=== PATIENT | female | born 1985 | race Caucasian/White ===

== ENCOUNTER 2019-02-28 12:13 | Inpatient (IN) | payer OTHER ==
[~2019-02-28] VITALS: Ht 167.6 cm; Wt 98.2 kg
[~2019-02-28 12:13] MED LIST: HYDR-3240 PO; IBUP-1222 PO
[2019-03-07 05:05] VITALS: BP 120/68
[2019-03-07] MEDS ORDERED: OXYTOCIN 30U/ 0.9% NaCL 500ML 500 ML IV ONE (05:05)
[2019-03-07] MEDS ORDERED: OXYTOCIN 30U/ 0.9% NaCL 500ML 500 ML IV PRN (05:05)
[2019-03-07] MEDS ORDERED: D5%-LACTATED RINGERS 1,000 ML IV SCH (05:05)
[2019-03-07] MEDS ORDERED: MISOPROSTOL 200 MCG TABLET ONE (05:10)
[2019-03-07] MEDS ORDERED: NEWBORN KIT ONE (05:10)
[2019-03-07] MEDS ORDERED: LIDOCAINE 1%, 20ML ONE (05:10)
[2019-03-07] MEDS ORDERED: OXYTOCIN 30U/ 0.9% NaCL 500ML 500 ML ONE ×2 (05:10→14:03)
[2019-03-07] MEDS ORDERED: CALCIUM CARBONATE 500 MG TAB.CHEW PO PRN (05:30)
[2019-03-07] MEDS ORDERED: FENTANYL PF 100 MCG/2ML IVPush PRN (05:30)
[2019-03-07] MEDS ORDERED: TERBUTALINE 1 MG/ML, 1ML IVPush PRN (05:30)
[2019-03-07] MEDS ORDERED: ONDANSETRON 2MG/ML, 2ML IVPush PRN (05:30)
[2019-03-07] MEDS ORDERED: FENTANYL PF 100 MCG/2ML IV PRN (05:30)
[2019-03-07] MEDS ORDERED: METOCLOPRAMIDE 5 MG/ML, 2ML IVPush PRN (05:30)
[2019-03-07] MEDS ORDERED: SODIUM CITRATE/CITRIC ACID 15 ML UDC PO PRN (05:30)
[2019-03-07] MEDS: LACTATED RINGERS 1,000 ML IV SCH ×2 (05:33→13:51)
[2019-03-07 05:45] LABS: BASOPHILS # (AUTO) 0.02 x10^3/uL (0-0.1); BASOPHILS % (AUTO) 0 % (0-1); EOSINOPHILS # (AUTO) 0.14 x10^3/uL (0-0.4); EOSINOPHILS % (AUTO) 1 % (1-7); LYMPHOCYTES # (AUTO) 1.84 x10^3/uL (1-3.4); LYMPHOCYTES % (AUTO) 19 % (22-44); MD NO; MEAN CORPUSCULAR HEMOGLOBIN 29.8 pg (27.0-34.8); MEAN CORPUSCULAR VOLUME 90.3 fL (80-100); MEAN PLATELET VOLUME 8.8 fL (7.4-10.4); MONOCYTES # (AUTO) 0.73 x10^3/uL (0.2-0.8); MONOCYTES % (AUTO) 8 % (2-9); NEUTROPHILS # (AUTO) 7.08 x10^3/uL (1.8-6.8); NEUTROPHILS % (AUTO) 72 % (42-75); PLATELET COUNT 222 x10^3/uL (130-400); RED BLOOD COUNT 3.74 x10^6/uL (3.82-5.3); RED CELL DISTRIBUTION WIDTH 13.9 % (9.6-15.2)
[2019-03-07] MEDS ORDERED: FENTANYL/BUPIV./NS/PF 250 ML EPIDCONT ONE ×2 (08:49→09:05)
[2019-03-07] MEDS ORDERED: BUPIVACAINE 0.25% ONE ×2 (08:56→09:05)
[2019-03-07] MEDS ORDERED: FENTANYL/BUPIV./NS/PF 250 ML EPIDCONT SCH (09:08)
[2019-03-07] MEDS ORDERED: LACTATED RINGERS 1,000 ML IV SCH (09:08)
[2019-03-07] MEDS ORDERED: LACTATED RINGERS 1,000 ML IVBOLUS PRN (09:30)
[2019-03-07] MEDS ORDERED: EPHEDRINE 50 MG/ML, 1ML IVPush PRN (09:30)
[2019-03-07] MEDS: OXYTOCIN 30U/ 0.9% NaCL 500ML 500 ML IV SCH ×2 (13:24→23:24)
[2019-03-07] MEDS ORDERED: ACETAMINOPHEN 325 MG TABLET PO PRN ×2 (13:30)
[2019-03-07] MEDS ORDERED: OXYcodone/APAP 5/325MG TABLET PO PRN ×2 (13:30)
[2019-03-07] MEDS ORDERED: ONDANSETRON 2MG/ML, 2ML IV PRN (13:30)
[2019-03-07] MEDS ORDERED: MISOPROSTOL 200 MCG TABLET PR PRN (13:30)
[2019-03-07 16:01] VITALS: BP 114/70
[2019-03-07] MEDS: IBUPROFEN 600 MG TABLET PO PRN ×2 (16:03→22:25)
[2019-03-07 19:30] VITALS: BP 115/67
[2019-03-07] MEDS: DOCUSATE 100 MG CAPSULE PO PRN (22:25)
[2019-03-07 23:07] LABS: BASOPHILS # (AUTO) 0.06 x10^3/uL (0-0.1); BASOPHILS % (AUTO) 0 % (0-1); EOSINOPHILS # (AUTO) 0.07 x10^3/uL (0-0.4); EOSINOPHILS % (AUTO) 1 % (1-7); LYMPHOCYTES # (AUTO) 1.48 x10^3/uL (1-3.4); LYMPHOCYTES % (AUTO) 11 % (22-44); MD NO; MEAN CORPUSCULAR HEMOGLOBIN 29.5 pg (27.0-34.8); MEAN CORPUSCULAR HGB CONC 32.8 g/dL (32.4-35.8); MEAN CORPUSCULAR VOLUME 89.9 fL (80-100); MEAN PLATELET VOLUME 8.7 fL (7.4-10.4); MONOCYTES % (AUTO) 6 % (2-9); NEUTROPHILS # (AUTO) 10.59 x10^3/uL (1.8-6.8); NEUTROPHILS % (AUTO) 82 % (42-75); PLATELET COUNT 194 x10^3/uL (130-400); RED BLOOD COUNT 3.29 x10^6/uL (3.82-5.3); RED CELL DISTRIBUTION WIDTH 13.9 % (9.6-15.2)
[2019-03-08 00:45] VITALS: BP 99/66
[2019-03-08] MEDS: IBUPROFEN 600 MG TABLET PO PRN ×2 (04:29→10:55)
[2019-03-08 04:30] VITALS: BP 98/64
[2019-03-08 07:35] VITALS: BP 110/73
[2019-03-08] MEDS: DOCUSATE 100 MG CAPSULE PO PRN (08:57)
[2019-03-08] MEDS ORDERED: PRENATAL VIT/IRON/FA 1 EACH TABLET PO SCH (09:00)
[2019-03-08] MEDS: OXYTOCIN 30U/ 0.9% NaCL 500ML 500 ML IV SCH (09:24)
[2019-03-08] MEDS ORDERED: IBUP-1222 PO (11:38)
[2019-03-08 11:45] VITALS: BP 102/68
== END 2019-03-08 16:39 | disposition home or self-care (01) | DRG 807 ==
LOC: LDIP 03-07 05:01 → 2NW 03-07 15:17
PROVIDERS: ADMIT Obstetrics & Gynecology; ATTEND Obstetrics & Gynecology
PROC: 10E0XZZ Delivery of Products of Conception, External Approach (ICD-10-PCS; principal; 2019-03-07)
PROC: 0KQM0ZZ Repair Perineum Muscle, Open Approach (ICD-10-PCS; 2019-03-07)
PROC: 10H07YZ Insertion of Other Device into Products of Conception, Via Natural or Artificial Opening (ICD-10-PCS; 2019-03-07)
PROC: 10907ZC Drainage of Amniotic Fluid, Therapeutic from Products of Conception, Via Natural or Artificial Opening (ICD-10-PCS; 2019-03-07)
PROC: 3E0R3BZ Introduction of Anesthetic Agent into Spinal Canal, Percutaneous Approach (ICD-10-PCS; 2019-03-07)
PROC: 00HU33Z Insertion of Infusion Device into Spinal Canal, Percutaneous Approach (ICD-10-PCS; 2019-03-07)
DX: O48.0 Post-term pregnancy (principal); Z37.0 Single live birth; O69.81X0 Labor and delivery complicated by cord around neck, without compression, not applicable or unspecified; Z3A.41 41 weeks gestation of pregnancy; O70.1 Second degree perineal laceration during delivery
CPT/HCPCS: 36415; 85025; 86850; 86900; G0378; J3490; J2590; J3010; J7120